=== PATIENT | female | born 1975 | race American Indian/Alaskan Native ===

== ENCOUNTER 2019-11-06 02:12 | Emergency (ER) | payer OTHER ==
[2019-11-06 02:34] LABS: Basophils # (Auto) 0.1 K/mm3 (0.0-0.1); Basophils % (Auto) 0.9 % (0.0-1.8); Eosinophils # (Auto) 0.3 K/mm3 (0.0-0.4); Eosinophils % (Auto) 2.9 % (0.0-4.3); Hemoglobin 11.7 gm/dl (10.1-14.3); Lymphocytes # (Auto) 1.4 K/mm3 (1.2-5.4); Lymphocytes % (Auto) 15.3 % (13.4-35.0); Mean Corpuscular HGB Conc 32 % (30-34); Monocytes # (Auto) 0.7 K/mm3 (0.0-0.8); Platelet Count 328 K/mm3 (140-440); Red Blood Count 5.16 M/mm3 (3.65-5.03); Red Cell Distribution Width 16.7 % (13.2-15.2)
[2019-11-06] MEDS ORDERED: ONDANSETRON 4 MG/2 ML INJ IV ONE (02:45)
[2019-11-06] MEDS ORDERED: FAMOTIDINE 20 MG/2 ML INJ IV ONE (02:45)
[2019-11-06] MEDS ORDERED: HYDROmorphone 1 MG/1 ML INJ IV ONE (02:46)
[2019-11-06 02:47] LABS: Mean Corpuscular Volume 70 fl (79-97)
[2019-11-06 02:49] LABS: Alanine Aminotransferase 18 units/L (7-56); Albumin 3.3 g/dL (3.9-5); BUN/Creatinine Ratio 13; Blood Urea Nitrogen 9 mg/dL (7-17); Calcium 9.2 mg/dL (8.4-10.2); Hemolysis Index 0
--- NOTE | 2019-11-06 03:53 | Cat Scan Report ---
CT ABDOMEN WITH CONTRAST HISTORY: MAIN: LLQ Pain, 100CC [id number], PT. STS Lower-Anterior Abd pain x 3 days. Pt Sts. Hx. of her [place] repair with revision and mesh repair x 5 years ago. COMPARISON: None. TECHNIQUE: CT images of the abdomen were obtained following administration of intravenous contrast. All CT scans at this location are performed using CT dose reduction for ALARA by means of automated e xposure control. CONTRAST: 100 ml of intravenous contrast administered. FINDINGS: Lungs/bones: Lung bases are clear. There are degenerative changes within the spine and pelvis with n o acute osseous abnormality identified. Abdomen: There is abdominal distention, with fluid arising centrally in the mesenteric root and disp lacing bowel and other structures peripherally. There are also large heterogeneous masses which appea rs to arise from the uterus and may represent fibroids. Another mass arises from what appears to be t he right adnexal region and may represent an ovarian mass. Tiny cysts are seen in the liver. The gallbladder, spleen, pancreas, adrenals, kidneys, and proximal GI tract appear unremarkable. No acute colonic abnormality identified. IMPRESSION: 1. Large central fluid attenuation in the deep mid with masslike structure arising from what appears to be the right adnexal region. Differential considerations include a large cystic/mucinous right adn exal or mesenteric root tumor versus a very unusual appearance of ascites. Consider fluid sampling fo r potential malignancy. 2. Large masslike structures is attenuated peripherally uterus, possibly uterine fibroid disease. Signer Name: Justin Jimenez MD Signed: 11/06/2019 3:49 AM Workstation Name: [id number]
--- NOTE | 2019-11-06 04:12 | Emergency Department Report ---
ED Abdominal Pain HPI - General Chief Complaint: Abdominal Pain Stated Complaint: LOWER ABDOMINAL PAIN Source: patient Mode of arrival: Ambulatory Limitations: No Limitations - History of Present Illness Initial Comments: Patient is a 44-year-old -N[place]alese female with a history of hypertension who presented to the ED with acute onset persistent diffuse abdominal pain, na usea and vomiting and abdominal distention for the last 1 week, worse in the last 2 days. Patient states that she can hardly eat anything because of feeling fall for the last 2 days. Patient also states that she has had significant weight loss in the last 2 months. Patient denies fever, chills, cough, diarrhea, dysuria, chest pain, shortness of breath, cough, vaginal bleeding, vaginal discharge, dizziness, palpitation, syncope, headache or back pain. MD Complaint: abdominal pain, other (nausea and vomiting) -: week(s) (1) Location: diffuse Radiation: none Migration to: no migration Severity scale (0 -10): 10 Quality: cramping, aching, sharp Consistency: constant Improves With: nothing Worsens With: eating, movement Context: other (spontaneous) Associated Symptoms: denies other symptoms, nausea, vomiting, anorexia. denies: diarrhea, fever, constipation, dysuria, hematemesis, hematochezia, melena, hematuria, syncope - Related Data Home Medications Medication Instructions Recorded Confirmed Last Taken Valsartan-Hctz 320-12.5 mg Tab 1 tab PO DAILY 04/26/16 04/26/16 04/26/16 amLODIPine 1 tab PO DAILY 04/26/16 04/26/16 04/26/16 Previous Rx's Medication Instructions Recorded Last Taken Type HYDROcodone/APAP 5-325 [Jber 1 each PO Q6HR PRN #12 tablet 04/26/16 Unknown Rx 5/325] Dicyclomine [Bentyl] 20 mg PO Q6H PRN #30 tablet 11/06/19 Unknown Rx Famotidine [Pepcid] 20 mg PO BID #60 tablet 11/06/19 Unknown Rx Ondansetron [Zofran Odt] 4 mg PO Q6HR PRN #20 tab.rapdis 11/06/19 Unknown Rx Allergies Allergy/AdvReac Type Severity Reaction Status Date / Time morphine Allergy Unknown Verified 04/26/16 08:08 Pork/Porcine Containing Allergy Nausea Verified 04/26/16 08:08 Products ED Review of Systems ROS: Stated complaint: LOWER ABDOMINAL PAIN Other details as noted in HPI Constitutional: denies: chills, fever Eyes: denies: eye pain, eye discharge, vision change ENT: denies: ear pain, throat pain Respiratory: denies: cough, shortness of breath, wheezing Cardiovascular: denies: chest pain, palpitations Endocrine: no symptoms reported Gastrointestinal: abdominal pain, nausea, vomiting. denies: diarrhea Genitourinary: denies: urgency, dysuria, discharge Musculoskeletal: denies: back pain, joint swelling, arthralgia Skin: denies: rash, lesions Neurological: denies: headache, weakness, paresthesias Psychiatric: denies: anxiety, depression Hematological/Lymphatic: denies: easy bleeding, easy bruising ED Past Medical Hx - Past Medical History Previous Medical History?: Yes Hx Hypertension: Yes Hx Asthma: Yes Additional medical history: Vaginal delivery x 2 - Surgical History Past Surgical History?: Yes Additional Surgical History: Umbilical hernia repair in 2012 - Social History Smoking Status: Never Smoker Substance Use Type: None - Medications Home Medications: Home Medications Medication Instructions Recorded Confirmed Last Taken Type HYDROcodone/APAP 5-325 [Jber 1 each PO Q6HR PRN #12 tablet 04/26/16 Unknown Rx 5/325] Valsartan-Hctz 320-12.5 mg Tab 1 tab PO DAILY 04/26/16 04/26/16 04/26/16 History amLODIPine 1 tab PO DAILY 04/26/16 04/26/16 04/26/16 History Dicyclomine [Bentyl] 20 mg PO Q6H PRN #30 tablet 11/06/19 Unknown Rx Famotidine [Pepcid] 20 mg PO BID #60 tablet 11/06/19 Unknown Rx Ondansetron [Zofran Odt] 4 mg PO Q6HR PRN #20 tab.rapdis 11/06/19 Unknown Rx ED Physical Exam - General Limitations: No Limitations General appearance: alert, in no apparent distress - Head Head exam: Present: atraumatic, normocephalic, normal inspection - Eye Eye exam: Present: normal appearance, PERRL, EOMI Pupils: Present: normal accommodation - ENT ENT exam: Present: normal exam, normal orophraynx, mucous membranes moist, TM's normal bilaterally, normal external ear exam - Neck Neck exam: Present: normal inspection, full ROM. Absent: tenderness - Respiratory Respiratory exam: Present: normal lung sounds bilaterally. Absent: respiratory distress, wheezes, rhonchi, chest wall tenderness, accessory muscle use - Cardiovascular Cardiovascular Exam: Present: normal rhythm, tachycardia, normal heart sounds. Absent: systolic murmur, diastolic murmur, rubs, gallop - GI/Abdominal GI/Abdominal exam: Present: soft, distended (Moderately distended abdomen diffusely, no fluid wave), tenderness (Palpable diffuse abdominal tenderness with no guarding or rebound), normal bowel sounds. Absent: guarding, rebound, hyperactive bowel sounds, hypoactive bowel sounds - Extremities Exam Extremities exam: Present: normal inspection, full ROM, normal capillary refill - Back Exam Back exam: Present: normal inspection, full ROM. Absent: tenderness, CVA tend erness (R), muscle spasm - Neurological Exam Neurological exam: Present: alert, oriented X3, CN II-XII intact, normal gait, reflexes normal - Psychiatric Psychiatric exam: Present: normal affect, normal mood - Skin Skin exam: Present: warm, dry, intact, normal color. Absent: rash ED Course Vital Signs 11/06/19 11/06/19 02:14 05:15 Temperature 99.9 F H 98.7 F Pulse Rate 119 H 87 Respiratory 18 18 Rate Blood Pressure 135/91 122/86 [Right] O2 Sat by Pulse 96 100 Oximetry ED Medical Decision Making - Lab Data Result diagrams: 11/06/19 02:21 11/06/19 02:21 - Radiology Data Radiology results: report reviewed, image reviewed Findings [facility] [address] [place] [address] Cat Scan Report Signed Patient: TIFFANY QUEVEDO MR #: [id number] : 1975 Acct:[id number] Age/Sex: 44 / F ADM Date: 11/06/19 Loc: ED Attending Dr: Ordering Physician: NELSON NAIR Date of Service: 11/06/19 Procedure(s): CT abdomen pelvis w con Accession Number(s): [id number] cc: NELSON NAIR CT ABDOMEN WITH CONTRAST HISTORY: MAIN: LLQ Pain, 100CC [id number], PT. STS Lower-Anterior Abd pain x 3 days. Pt Sts. Hx. of hernia repair with revision and mesh repair x 5 years ago. COMPARISON: None. TECHNIQUE: CT images of the abdomen were obtained following administration of intravenous contrast. All CT scans at this location are performed using CT dose reduction for ALARA by means of automated exposure control. CONTRAST: 100 ml of intravenous contrast administered. FINDINGS: Lungs/bones: Lung bases are clear. There are degenerative changes within the spine and pelvis with no acute osseous abnormality identified. Abdomen: There is abdominal distention, with fluid arising centrally in the mesenteric root and displacing bowel and other structures peripherally. There are also large heterogeneous masses which appears to arise from the uterus and may represent fibroids. Another mass arises from what appears to be the right adnexal region and may represent an ovarian mass. Tiny cysts are seen in the liver. The gallbladder, spleen, pancreas, adrenals, kidneys, and proximal GI tract appear unremarkable. No acute colonic abnormality identified. IMPRESSION: 1. Large central fluid attenuation in the deep mid with masslike structure arising from what appears to be the right adnexal region. Differential considerations include a large cystic/mucinous right adnexal or mesenteric root tumor versus a very unusual appearance of ascites. Consider fluid sampling for potential malignancy. 2. Large masslike structures is attenuated peripherally uterus, possibly uterine fibroid disease. Signer Name: Justin Jimenez MD Signed: 11/06/2019 3:49 AM Workstation Name: [id number] Transcribed By: KELVIN Dictated By: Justin Jimenez MD Electronically Authenticated By: Justin Jimenez MD Signed Date/Time: 11/06/19 0349 DD/ 0338 TD/TT: - Medical Decision Making This is a 44-year-old -N[place]alese female with a history of hypertension who presented to the ED with acute onset persistent diffuse abdominal pain, nausea and vomiting and abdominal distention for the last 1 week, worse in the last 2 days. Patient states that she can hardly eat anything because of feeling fall for the last 2 days. In the ED, patient is alert and oriented x3 and is not in distress but appears to be in pain, is tachycardic in triage. Patient was treated in the ED for nausea and vomiting, also given pain medications and antacids. Abdomen pelvis CT scan with contrast shows a large central fluid attenuation in the deep mid with masslike structure arising from what appears to be the right adnexal region. Differential considerations include a large cystic/mucinous right adnexal or mesenteric root tumor versus a very unusual appearance of ascites. Consider fluid sampling for potential malignancy. It also shows a large masslike structures is attenuated peripherally uterus, possibly uterine fibroid disease. These findings were discussed with the ED attending physician Dr. Malik who advised the patient be discharged home to follow-up with her primary care physician and FAMILY NURSE PRACTITIONER physician for further evaluation and characterization of findings. On reevaluation, patient vital signs are stable, patient does not exhibit any signs of bacterial peritonitis. Patient is afebrile, normotensive and is in no acute distress. Patient's pain has resolved with medications. Patient has an appointment with her primary care physician on Thursday, November 06, 2019 and promised to discuss these findings with her primary care physician. I advised the patient to have her primary care physician request for her medical records from the ED visit so it can help him make the appropriate referral for the patient. Patient agreed with the plan of care. Return precautions to the ED also discussed with the patient. At the at the time of the patient discharge, patient vital signs were stable - Differential Diagnosis SBO; Ovarian cyst; Appendicitis; Uterine fibroid; Diverticulitis; UTI Critical care attestation.: If time is entered above; I have spent that time in minutes in the direct care o f this critically ill patient, excluding procedure time. ED Disposition Clinical Impression: Diffuse abdominal pain, Nausea and vomiting in adult, Pelvic mass in female Disposition: DC-01 TO HOME OR SELFCARE Is pt being admited?: No Does the pt Need Aspirin: No Condition: Stable Instructions: Abdominal Pain (ED), Acute Nausea and Vomiting (ED) Additional Instructions: Your lab test results showed no acute findings. However the abdomen pelvis CT scan with contrast showed a mass in the abdomen which may be cancerous or tumors producing a lot of fluids in your abdomen. The etiology of this mass is likely ovarian or uterine. Therefore follow-up with the FAMILY NURSE PRACTITIONER physician or primary care physician in 2 to 3 days for reevaluation. Take pain medications as needed with food. Return to the ED immediately if symptoms get worse. Prescriptions: Dicyclomine [Bentyl] 20 mg PO Q6H PRN #30 tablet PRN Reason: Pain , Severe (7-10) Famotidine [Pepcid] 20 mg PO BID #60 tablet Ondansetron [Zofran Odt] 4 mg PO Q6HR PRN #20 tab.rapdis PRN Reason: Nausea Referrals: [facility] [Provider Group] - 3-5 Days BINH MAURER MD [Staff Physician] - 3-5 Days Time of Disposition: 06:29 Print Language: KHMER
[2019-11-06 05:48] LABS: Bilirubin,Urine NEG (Negative); Blood,Urine NEG (Negative); Color,Urine Yellow (Yellow); Protein,Urine <15 mg/dL mg/dL (Negative); Urobilinogen,Urine < 2.0 mg/dL (<2.0)
[2019-11-08 12:22] VITALS: BP 122/86
== END 2019-11-06 07:02 | disposition home or self-care (01) ==
LOC: ED 02:12
DX: R10.84 Generalized abdominal pain (principal); R11.2 Nausea with vomiting, unspecified; R19.00 Intra-abdominal and pelvic swelling, mass and lump, unspecified site; I10 Essential (primary) hypertension; J45.909 Unspecified asthma, uncomplicated; Z98.890 Other specified postprocedural states; Z79.899 Other long term (current) drug therapy; Z88.8 Allergy status to other drugs, medicaments and biological substances
CPT/HCPCS: 36415; 74177; 80053; 81001; 83690; 85025; 87086; 96374; 96375; 99284; J1170; J2405; Q9967

== ENCOUNTER 2020-03-25 21:27 | Emergency (ER) | payer OTHER ==
[2020-03-25 22:07] LABS: Basophils # (Auto) 0.1 K/mm3 (0.0-0.1); Basophils % (Auto) 1.3 % (0.0-1.8); Eosinophils # (Auto) 0.1 K/mm3 (0.0-0.4); Eosinophils % (Auto) 3.5 % (0.0-4.3); Lymphocytes # (Auto) 1.5 K/mm3 (1.2-5.4); Lymphocytes % (Auto) 37.3 % (13.4-35.0); Mean Corpuscular HGB Conc 32 % (30-34); Monocytes # (Auto) 0.4 K/mm3 (0.0-0.8); Monocytes % (Auto) 9.3 % (0.0-7.3); Red Blood Count 6.22 M/mm3 (3.65-5.03)
[2020-03-25 22:10] LABS: Mean Corpuscular Volume 66 fl (79-97); Platelet Count 162 K/mm3 (140-440); Red Cell Distribution Width 21.1 % (13.2-15.2)
[2020-03-25 22:25] LABS: Blood Urea Nitrogen 13 mg/dL (7-17); Calcium 9.9 mg/dL (8.4-10.2); Hemolysis Index 5
[2020-03-25 22:26] LABS: BUN/Creatinine Ratio 19
--- NOTE | 2020-03-25 22:44 | XRay Report ---
CHEST 1 VIEW INDICATION / CLINICAL INFORMATION: Chest Pain. COMPARISON: 03/21/2020 FINDINGS: SUPPORT DEVICES: None. HEART / MEDIASTINUM: No significant abnormality. LUNGS / PLEURA: No significant pulmonary or pleural abnormality. No pneumothorax. ADDITIONAL FINDINGS: No significant additional findings. IMPRESSION: 1. No acute findings. No significant interval change. Signer Name: Daniel Singh MD Signed: 03/25/2020 10:39 PM Workstation Name: [id number]
[2020-03-26 01:42] VITALS: BP 121/97
== END 2020-03-26 01:45 | disposition left against medical advice (07) ==
LOC: ED 21:27
DX: R07.89 Other chest pain (principal); R20.2 Paresthesia of skin; Z53.21 Procedure and treatment not carried out due to patient leaving prior to being seen by health care provider
CPT/HCPCS: 36415; 71045; 80048; 84484; 85025; 93005